=== PATIENT | male | born 1955 | race African-American/Black ===

== ENCOUNTER 2017-09-08 23:42 | Observation (INO) | payer OTHER ==
[2017-09-09 00:36] VITALS: BMI 28.5
[2017-09-09] MEDS ORDERED: SODIUM CHLORIDE 1,000 ML IV STA (00:48)
--- NOTE | 2017-09-09 01:07 | PDOC ---
Attending Attestation - Resident Resident Name: Aneudy Sauceda - ED Attending Attestation I have performed the following: I have examined & evaluated the patient, The case was reviewed & discussed with the resident, I agree w/resident's findings & plan, Exceptions are as noted - HPI HPI: 09/09/17 02:16 62-year-old male with history of diabetes, hypertension presents to the ER after a witnessed near syncopal episode associated with diaphoresis and lightheadedness lasted approximately 30 minutes prior to arrival. - Physicial Exam PE: 09/09/17 02:17 Patient is awake and alert, nontoxic-appearing, mildly tachycardic on initial evaluation. EXAMINATION CONSTITUTIONAL: Well-appearing; well-nourished; in no apparent distress HEAD: Normocephalic; atraumatic EYES: PERRL; EOM intact ENMT: External appears normal; normal oropharynx NECK: Supple; non-tender; no cervical lymphadenopathy CARD: Tachycardic; Normal S1, S2; no murmurs, rubs, or gallops RESP: Normal chest excursion with respiration; breath sounds clear and equal bilaterally; no wheezes, rhonchi, or rales ABD: Soft, non-distended; non-tender; no palpable organomegaly, no palpable hernias EXT: Normal ROM in all four extremities; non-tender to palpation; distal pulses intact SKIN: Warm, dry, no rash NEURO: No focal neurological deficiencies. - Medical Decision Making 09/09/17 02:17 62-year-old male with history of diabetes, hypertension presents after witnessed near syncopal episode. In the ER, patient is awake and alert, afebrile , nontoxic appearing, mildly tachycardic. EKG reveals sinus tachycardia at the rate of 111, with extreme left axis deviation, right bundle branch block pattern and prolonged QTC. Differential diagnoses includes an arrhythmia versus PE versus hypoglycemic episode; we'll obtain CBC/CMP/cardiac profile. Patient's low probability for PE and d-dimer will be obtained. Will obtain magnesium level. Will obtain chest x-ray to rule out cardiomegaly. Will reassess.
[2017-09-09 01:12] LABS: BASOPHIL 0.7 % (0-2.0); EOSINOPHIL 0.5 % (0-4.5); MCH 32.2 pg (25.7-33.7); MCHC 33.7 g/dl (32.0-35.9); MEAN CELL VOLUME 95.7 fl (80-96); MEAN PLT VOLUME 8.6 fl (7.5-11.1); NEUTROPHILS 84.1 % (42.8-82.8); PLATELET COUNT 159 K/MM3 (134-434); WHITE BLOOD COUNT 14.6 K/mm3 (4.0-10.0)
[2017-09-09 01:40] LABS: ALBUMIN 3.9 g/dl (3.4-5.0); ANION GAP 12 (8-16); BILIRUBIN,TOTAL 0.4 mg/dL (0.2-1.0); CALCIUM 9.6 mg/dL (8.5-10.1); CO2 23 mmol/L (21-32); CREATININE 1.1 mg/dL (0.7-1.3); GLUCOSE,RANDOM 150 mg/dL (74-106); SGOT/AST 26 U/L (15-37); SGPT/ALT 29 U/L (12-78); TOT PROT 7.4 g/dl (6.4-8.2)
[2017-09-09 01:41] LABS: ALK PHOS 60 U/L (45-117); CPK 140 IU/L (39-308); TROPONIN I < 0.02 ng/ml (0.00-0.05)
[2017-09-09 01:57] LABS: INR 1.02 (0.82-1.09); PROTHROMBIN TIME (PATIENT) 11.5 SEC (9.98-11.88)
[2017-09-09] MEDS ORDERED: MAGNESIUM SULF 50% (8.12 MEQ/2 ML-1 GM VIAL) IVPB ONE ×2 (02:05→19:22)
[2017-09-09] MEDS ORDERED: MAGNESIUM SULF 50% (8.12 MEQ/2 ML-1 GM VIAL) ONE ×2 (02:14→19:36)
--- NOTE | 2017-09-09 02:52 | PDOC ---
History of Present Illness - General Chief Complaint: Lightheaded Stated Complaint: DIZZINESS Time Seen by Provider: 09/09/17 00:03 - History of Present Illness Initial Comments: 09/09/17 02:44 62 yo M with h/o HTN, NIDDM who presents with presyncope. Pt. reports 30 minutes [employer] he was sitting at [employer] and eating when he felt "like he was going to pass out." He then endorses diaphoresis for 30 minutes that has since resolved. He denies chest pain, SOB, LOC, seizures, N/V, fevers/chills, urinary complaints, GI/abdominal complaints. Symptoms have resolved. PCP Dr. Corbett Past History - Past Medical History Allergies/Adverse Reactions: Allergies Allergy/AdvReac Type Severity Reaction Status Date / Time No Known Allergies Allergy Verified 09/08/17 23:51 Home Medications: Ambulatory Orders Metformin HCl [Glucophage -] 500 mg PO BID 09/09/17 - Suicide/Smoking/Psychosocial Hx Smoking History: Current every day smoker Number of Cigarettes Smoked Daily: 10 Information on smoking cessation initiated: No Hx Alcohol Use: No Drug/Substance Use Hx: No Review of Systems - Review of Systems Comments:: 09/09/17 02:52 GENERAL/CONSTITUTIONAL: No fever or chills. No weakness. HEAD, EYES, EARS, NOSE AND THROAT: No change in vision. No ear pain or discharge. No sore throat.- CARDIOVASCULAR: No chest pain or shortness of breath RESPIRATORY: No cough, wheezing, or hemoptysis. GASTROINTESTINAL: No nausea, vomiting, diarrhea or constipation. GENITOURINARY: No dysuria, frequency, or change in urination. MUSCULOSKELETAL: No joint or muscle swelling or pain. No neck or back pain. SKIN: No rash NEUROLOGIC: No headache, vertigo, loss of consciousness, or change in strength/ sensation. ENDOCRINE: No increased thirst. No abnormal weight change HEMATOLOGIC/LYMPHATIC: No anemia, easy bleeding, or history of blood clots. ALLERGIC/IMMUNOLOGIC: No hives or skin allergy. *Physical Exam - Vital Signs Last Vital Signs Temp Pulse Resp BP Pulse Ox 97.6 F 110 H 22 128/73 96 09/08/17 23:51 09/08/17 23:51 09/08/17 23:51 09/08/17 23:51 09/08/17 23:51 - Physical Exam Comments: 09/09/17 02:52 GENERAL: Awake, alert, and fully oriented, in no acute distress HEAD: No signs of trauma, normocephalic, atraumatic EYES: PERRLA, EOMI, sclera anicteric, conjunctiva clear ENT: Auricles normal inspection, hearing grossly normal, nares patent, oropharynx clear without exudates. Moist mucosa NECK: Normal ROM, supple, no lymphadenopathy, JVD, or masses LUNGS: No distress, speaks full sentences, clear to auscultation bilaterally HEART: Regular rate and rhythm, normal S1 and S2, no murmurs, rubs or gallops, peripheral pulses normal and equal bilaterally. ABDOMEN: Soft, nontender, normoactive bowel sounds. No guarding, no rebound. No masses EXTREMITIES : Normal inspection, Normal range of motion, no edema. No clubbing or cyanosis. NEUROLOGICAL: Cranial nerves II through XII grossly intact. Normal speech, no focal sensorimotor deficits. Absent dysmetria on FTN. Normal DANIELLE. SKIN: Warm, Dry, normal turgor, no rashes or lesions noted. Heart Score/ECG Review - History History: Moderately suspicious - Electrocardiogram EKG: Normal - Age Age: 45-65 - Risk Factors Risk Factors Heart Score: Yes Hx Hypertension, Yes Hx Diabetes, Yes Positive family hx of cardiac disease, Yes Hx Obesity Based on the list above the patient has:: >/=3 risk factors or Hx atherosclerotic disease - Troponin Troponin: </= normal limit - Score Heart Score - Total: 4 - [place]: Left [place] Deviation - P and ME Atrial Enlargement: Left - ST and T Prolonged Q-T Interval: Yes ED Treatment Course - LABORATORY CBC & Chemistry Diagram: 09/09/17 01:01 09/09/17 01:01 - ADDITIONAL ORDERS Additional order review: Laboratory Results 09/09/17 09/09/17 09/09/17 01:22 01:19 01:01 PT with INR 11.50 INR 1.02 D-Dimer 996 H Sodium Potassium Chloride Carbon Dioxide Anion Gap BUN Creatinine Creat Clearance w eGFR Random Glucose Calcium Magnesium 1.3 L Total Bilirubin AST ALT Alkaline Phosphatase Creatine Kinase 140 Troponin I < 0.02 Total Protein Albumin 09/09/17 01:01 PT with INR INR D-Dimer Sodium 133 L Potassium 4.8 Chloride 98 Carbon Dioxide 23 Anion Gap 12 BUN 14 Creatinine 1.1 Creat Clearance w eGFR > 60 Random Glucose 150 H Calcium 9.6 Magnesium Total Bilirubin 0.4 AST 26 ALT 29 Alkaline Phosphatase 60 Creatine Kinase Troponin I Total Protein 7.4 Albumin 3.9 09/09/17 01:01 RBC 4.32 MCV 95.7 MCHC 33.7 RDW 14.0 MPV 8.6 Neutrophils % 84.1 H Lymphocytes % 9.4 Monocytes % 5.3 Eosinophils % 0.5 Basophils % 0.7 - RADIOLOGY Radiology Studies Ordered: Category Date Time Status CHEST CTA [CT] Stat CT Scan 09/09/17 02:05 Ordered - Medications Given in the ED: ED Medications Discontinued Medications Generic Name Dose Route Start Last Admin Trade Name Freq PRN Reason Stop Dose Admin Sodium Chloride 1,000 mls @ 1,000 mls/hr 09/09/17 00:48 09/09/17 01:11 Normal Saline - IV 09/09/17 01:47 1,000 mls/hr ASDIR STA Administration Magnesium Sulfate 2 gm 09/09/17 02:05 09/09/17 02:19 Magnesium Sulfate IVPB 09/09/17 02:06 2 gm ONCE ONE Administration Medical Decision Making - Medical Decision Making 09/09/17 02:53 62 yo M with h/o HTN, NIDDM who presents with 30 minute episode of diaphoresis and presyncope 30 minutes [employer] while sitting down at social event. Symptoms have resolved spontaneously. No other asx. symptoms. Physical exam unremarkable. Patient mildly tachycardia 110's. DDx: Cardiac disarrythmia, PE, Hyperthyroidism ED Course: CBC, CMP, UA, EKG EKG:Severe axis deviation, RBBB, QTc Prolongation ~497 CXR: 09/09/17 02:59 Magnesium 2 mg IV D-Dimer: 996 Trop: Neg 09/09/17 02:59 CTA Chest Ordered 09/09/17 03:02 Heart Score 4-6 13 % Risk of MACE: Cardiac consult/Obs 09/09/17 03:50 Repeat EKG: [id number] 09/09/17 06:54 CTA Chest: Neg 09/09/17 07:25 [facility]. Waiting call back. Check out to Dr. Beverly *DC/Admit/Observation/Transfer Diagnosis at time of Disposition: Pre-syncope - Discharge Dispostion Condition at time of disposition: Stable
[2017-09-09 03:45] LABS: URINE APPEARANCE SLCLOUDY; URINE BILIRUBIN NEGATIVE (NEGATIVE); URINE BLOOD NEGATIVE (NEGATIVE); URINE COLOR YELLOW; URINE GLUCOSE (UA) NEGATIVE (NEGATIVE); URINE KETONE NEGATIVE (NEGATIVE); URINE NITRITE NEGATIVE (NEGATIVE); URINE PROTEIN NEGATIVE (NEGATIVE); URINE UROBILINOGEN NEGATIVE mg/dL (0.2-1.0)
--- NOTE | 2017-09-09 07:50 | PDOC ---
*Physical Exam - Vital Signs Last Vital Signs Temp Pulse Resp BP Pulse Ox 97.6 F 85 18 124/75 98 09/08/17 23:51 09/09/17 07:30 09/09/17 07:30 09/09/17 07:30 09/09/17 07:30 - Physical Exam Comments: 09/09/17 07:45 General Appearance: Nourished. No Apparent Distress HEENT: EOMI, LAURYN. Respiratory/Chest: Lungs Clear, Normal Breath Sounds. No Crackles, Rales, Rhonchi, Wheezing Cardiovascular: Regular Rhythm, Regular Rate. No Murmur, Gallops, Rubs Gastrointestinal/Abdominal: Normal Bowel Sounds, Soft. No Guarding, Rebound, Tenderness Musculoskeletal: No CVA Tenderness Extremity: Normal Capillary Refill Integumentary: Normal Color, Dry, Warm Neurologic: Fully Oriented, Alert, Normal Mood/Affect, Normal Response, ED Treatment Course - LABORATORY CBC & Chemistry Diagram: 09/09/17 01:01 09/09/17 01:01 - ADDITIONAL ORDERS Additional order review: Laboratory Results 09/09/17 09/09/17 09/09/17 03:35 02:20 01:22 PT with INR INR D-Dimer Sodium Potassium Chloride Carbon Dioxide Anion Gap BUN Creatinine Creat Clearance w eGFR Random Glucose Calcium Magnesium 1.3 L Total Bilirubin AST ALT Alkaline Phosphatase Creatine Kinase Troponin I Total Protein Albumin TSH 0.57 Urine Color Yellow Urine Appearance Slcloudy Urine pH 5.0 Urine Protein Negative Urine Glucose (UA) Negative Urine Ketones Negative Urine Blood Negative Urine Nitrite Negative Urine Bilirubin Negative Urine Urobilinogen Negative 09/09/17 09/09/17 09/09/17 01:19 01:01 01:01 PT with INR 11.50 INR 1.02 D-Dimer 996 H Sodium 133 L Potassium 4.8 Chloride 98 Carbon Dioxide 23 Anion Gap 12 BUN 14 Creatinine 1.1 Creat Clearance w eGFR > 60 Random Glucose 150 H Calcium 9.6 Magnesium Total Bilirubin 0.4 AST 26 ALT 29 Alkaline Phosphatase 60 Creatine Kinase 140 Troponin I < 0.02 Total Protein 7.4 Albumin 3.9 TSH Urine Color Urine Appearance Urine pH Urine Protein Urine Glucose (UA) Urine Ketones Urine Blood Urine Nitrite Urine Bilirubin Urine Urobilinogen 09/09/17 01:01 RBC 4.32 MCV 95.7 MCHC 33.7 RDW 14.0 MPV 8.6 Neutrophils % 84.1 H Lymphocytes % 9.4 Monocytes % 5.3 Eosinophils % 0.5 Basophils % 0.7 - Medications Given in the ED: ED Medications Discontinued Medications Generic Name Dose Route Start Last Admin Trade Name Freq PRN Reason Stop Dose Admin Sodium Chloride 1,000 mls @ 1,000 mls/hr 09/09/17 00:48 09/09/17 01:11 Normal Saline - IV 09/09/17 01:47 1,000 mls/hr ASDIR STA Administration Magnesium Sulfate 2 gm 09/09/17 02:05 09/09/17 02:19 Magnesium Sulfate IVPB 09/09/17 02:06 2 gm ONCE ONE Administration Progress Note - Progress Note Progress Note: Received sign out from Dr. Sauceda. The patient is a 62 year old male who presents for evaluation of a pre-syncopal episode found to have EKG changes with a negative troponin. Pending tele obs admission. Medical Decision Making - Medical Decision Making 09/09/17 10:52 Discussed the case with the hospitalist team who accepted for observation admission. *DC/Admit/Observation/Transfer Diagnosis at time of Disposition: Pre-syncope - Discharge Dispostion Condition at time of disposition: Stable Admit: Yes
--- NOTE | 2017-09-09 08:46 | EKG ---
Test Reason : Blood Pressure : / mmHG Vent. Rate : 111 BPM Atrial Rate : 111 BPM P-R Int : 142 ms QRS Dur : 134 ms QT Int : 366 ms P-R-T Axes : 050 -18 031 degrees QTc Int : 497 ms SINUS TACHYCARDIA WITH PREMATURE ATRIAL COMPLEXES POSSIBLE LEFT ATRIAL ENLARGEMENT RIGHT BUNDLE BRANCH BLOCK ABNORMAL ECG NO PREVIOUS ECGS AVAILABLE Confirmed by DANIS BRIONES, ROXANNE ([id number]) on 09/09/2017 8:46:41 AM Referred By: Confirmed By:ROXANNE MOSCOSO MD
--- NOTE | 2017-09-09 09:08 | EKG ---
Test Reason : Blood Pressure : / mmHG Vent. Rate : 102 BPM Atrial Rate : 102 BPM P-R Int : 142 ms QRS Dur : 134 ms QT Int : 378 ms P-R-T Axes : 055 -18 037 degrees QTc Int : 492 ms SINUS TACHYCARDIA RIGHT BUNDLE BRANCH BLOCK ABNORMAL ECG WHEN COMPARED WITH ECG OF 08-SEP-2017 23:53, PREMATURE ATRIAL COMPLEXES ARE NO LONGER PRESENT Confirmed by ROXANNE MOSCOSO MD ([id number]) on 09/09/2017 9:08:08 AM Referred By: Confirmed By:ROXANNE MOSCOSO MD
--- NOTE | 2017-09-09 10:10 | HP ---
CHIEF COMPLAINT: "I got very sweaty." PCP: Dr. oCrbett HISTORY OF PRESENT ILLNESS: 62 year-old male with a PMH significant for HTN and NIDDM. Attended a dance last night. Suddenly became lightheaded and started sweating. Patient describes "soaking sweats." EMS was called and by the time they arrived, in about 15 minutes, the sweating and lightheadedness subsided. Patient was sitting when the episode started, not exerting himself. He had alcohol earlier in the day (a glass of Vodka) but not at the dance. He ate dinner. Patient denied chest pain, palpitations, SOB, lower extremity edema. He denied nausea, vomiting, diarrhea. Denied headache, fever, chills. ER course was notable for: (1) Troponin neg x 1 (2) D-dimer elevated: CTA negative for PE (3) ECG: sinus tach @111bpm; RBBB; prolonged QTc 492 Recent Travel: No PAST MEDICAL HISTORY: Hypertension NIDDM PAST SURGICAL HISTORY: None reported Social History: Smoking: current everyday smoker Alcohol: yes Drugs: no Family History: Allergies No Known Allergies Allergy (Verified 09/08/17 23:51) HOME MEDICATIONS: Home Medications Medication Instructions Recorded Metformin HCl [Glucophage -] 500 mg PO BID 09/09/17 REVIEW OF SYSTEMS CONSTITUTIONAL: Absent: fever, chills, diaphoresis, generalized weakness, malaise, loss of appetite, weight change HEENT: Absent: rhinorrhea, nasal congestion, throat pain, throat swelling, difficulty swallowing, mouth swelling, ear pain, eye pain, visual changes CARDIOVASCULAR: Present: diaphoresis, lightheadedness Absent: chest pain, syncope, palpitations, irregular heart rate, peripheral edema RESPIRATORY: Absent: cough, shortness of breath, dyspnea with exertion, orthopnea, wheezing, stridor, hemoptysis GASTROINTESTINAL: Absent: abdominal pain, abdominal distension, nausea, vomiting, diarrhea, constipation, melena, hematochezia GENITOURINARY: Absent: dysuria, frequency, urgency, hesitancy, hematuria, flank pain, genital pain MUSCULOSKELETAL: Absent: myalgia, arthralgia, joint swelling, back pain, neck pain SKIN: Absent: rash, itching, pallor HEMATOLOGIC/IMMUNOLOGIC: Absent: easy bleeding, easy bruising, lymphadenopathy, frequent infections ENDOCRINE: Absent: unexplained weight gain, unexplained weight loss, heat intolerance, cold intolerance NEUROLOGIC: Absent: headache, focal weakness or paresthesias, dizziness, unsteady gait, seizure, mental status changes, bladder or bowel incontinence PSYCHIATRIC: Absent: anxiety, depression, suicidal or homicidal ideation, hallucinations. PHYSICAL EXAMINATION Vital Signs - 24 hr 09/08/17 09/09/17 09/09/17 23:51 03:35 07:30 Temperature 97.6 F Pulse Rate 110 H Pulse Rate [ 101 H 85 Apical] Respiratory 22 16 18 Rate Blood Pressure 128/73 Blood Pressure 104/69 124/75 [Right Arm] O2 Sat by Pulse 96 100 98 Oximetry (%) GENERAL: Awake, alert, and fully oriented, in no acute distress. HEAD: Normal with no signs of trauma. EYES: Pupils equal, round and reactive to light, extraocular movements intact, sclera anicteric, conjunctiva clear. No ptosis. EARS, NOSE, THROAT: Ears normal, nares patent, oropharynx clear without exudates. Moist mucous membranes. NECK: Normal range of motion, supple without lymphadenopathy, JVD, or masses. LUNGS: Breath sounds equal, clear to auscultation bilaterally. No wheezes, and no crackles. No accessory muscle use. HEART: Regular rate and rhythm, normal S1 and S2 without murmur, rub or gallop. ABDOMEN: Soft, nontender, not distended, normoactive bowel sounds, no guarding, no rebound, no masses. No hepatomegaly or splenomegaly. MUSCULOSKELETAL: Normal range of motion at all joints. No bony deformities or tenderness. No CVA tenderness. UPPER EXTREMITIES: 2+ pulses, warm, well-perfused. No cyanosis. No clubbing. No peripheral edema. LOWER EXTREMITIES: 2+ pulses, warm, well-perfused. No calf tenderness. No peripheral edema. NEUROLOGICAL: Cranial nerves II-XII intact. Normal speech. Normal gait. PSYCHIATRIC: Cooperative. Good eye contact. Appropriate mood and affect. SKIN: Warm, dry, normal turgor, no rashes or lesions noted, normal capillary refill. Laboratory Results - last 24 hr 09/09/17 09/09/17 09/09/17 01:01 01:01 01:01 WBC 14.6 H RBC 4.32 Hgb 13.9 Hct 41.3 MCV 95.7 MCH 32.2 MCHC 33.7 RDW 14.0 Plt Count 159 MPV 8.6 Neutrophils % 84.1 H Lymphocytes % 9.4 Monocytes % 5.3 Eosinophils % 0.5 Basophils % 0.7 PT with INR INR D-Dimer Sodium 133 L Potassium 4.8 Chloride 98 Carbon Dioxide 23 Anion Gap 12 BUN 14 Creatinine 1.1 Creat Clearance w eGFR > 60 Random Glucose 150 H Calcium 9.6 Magnesium Total Bilirubin 0.4 AST 26 ALT 29 Alkaline Phosphatase 60 Creatine Kinase 140 Troponin I < 0.02 Total Protein 7.4 Albumin 3.9 TSH Urine Color Urine Appearance Urine pH Urine Protein Urine Glucose (UA) Urine Ketones Urine Blood Urine Nitrite Urine Bilirubin Urine Urobilinogen 09/09/17 09/09/17 09/09/17 01:19 01:22 02:20 WBC RBC Hgb Hct MCV MCH MCHC RDW Plt Count MPV Neutrophils % Lymphocytes % Monocytes % Eosinophils % Basophils % PT with INR 11.50 INR 1.02 D-Dimer 996 H Sodium Potassium Chloride Carbon Dioxide Anion Gap BUN Creatinine Creat Clearance w eGFR Random Glucose Calcium Magnesium 1.3 L Total Bilirubin AST ALT Alkaline Phosphatase Creatine Kinase Troponin I Total Protein Albumin TSH 0.57 Urine Color Urine Appearance Urine pH Urine Protein Urine Glucose (UA) Urine Ketones Urine Blood Urine Nitrite Urine Bilirubin Urine Urobilinogen 09/09/17 03:35 WBC RBC Hgb Hct MCV MCH MCHC RDW Plt Count MPV Neutrophils % Lymphocytes % Monocytes % Eosinophils % Basophils % PT with INR INR D-Dimer Sodium Potassium Chloride Carbon Dioxide Anion Gap BUN Creatinine Creat Clearance w eGFR Random Glucose Calcium Magnesium Total Bilirubin AST ALT Alkaline Phosphatase Creatine Kinase Troponin I Total Protein Albumin TSH Urine Color Yellow Urine Appearance Slcloudy Urine pH 5.0 Urine Protein Negative Urine Glucose (UA) Negative Urine Ketones Negative Urine Blood Negative Urine Nitrite Negative Urine Bilirubin Negative Urine Urobilinogen Negative ASSESSMENT/PLAN: 62 year-old male with a PMH significant for HTN and NIDDM. Admitted for near syncope. Near syncope --r/o ACS: troponins neg x 2, third pending; echo and stress tomorrow; started ASA, Lipitor, metoprolol; cardiology following --r/o PE: CTA negative --r/o infectious: WBC elevated 14.6k, possibly reactive; afebrile; UA negative, CXR negative; no abx for now --r/o neurocardiogenic: check orthostatics --r/o dysrhythmias: telemetry monitoring Hypertension --BP well-controlled --continue metoprolol NIDDM --Novolog sliding scale coverage Hypomagnesemia --repleted x 2 F/E/N Fluids: PO intake adequate Electrolytes: replete as indicated Nutrition: diabetic, low sodium; NPO after midnight DVT prophylaxis: lovenox, oob, ambulation Dispo: continues to require observation. Full code. Visit type - Emergency Visit Emergency Visit: Yes ED Registration Date: 09/09/17 Care time: The patient presented to the Emergency Department on the above date and was hospitalized for further evaluation of their emergent condition. - New Patient This patient is new to me today: Yes Date on this admission: 09/09/17 - Critical Care Critical Care patient: No
[2017-09-09] MEDS ORDERED: METOPROLOL TARTRATE 25 MG TABLET (FP) ONE (12:33)
[2017-09-09] MEDS ORDERED: ASPIRIN COATED 81 MG TABLET.EC ONE (12:33)
[2017-09-09] MEDS: ASPIRIN COATED 81 MG TABLET.EC PO SCH (12:40)
[2017-09-09] MEDS: METOPROLOL TARTRATE 25 MG TABLET (FP) PO SCH ×2 (12:40→22:27)
[2017-09-09 15:20] LABS: URINE LEUK ESTERASE Negative (NEGATIVE)
[2017-09-09 15:37] LABS: TROPONIN I < 0.02 ng/ml (0.00-0.05)
[2017-09-09 15:41] LABS: MAGNESIUM 1.7 mg/dL (1.8-2.4)
[2017-09-09] MEDS: INSULIN SLIDING SCALE (NOVOLOG) 1 VIAL SQ SCH ×2 (16:44→22:33)
--- NOTE | 2017-09-09 18:32 | CON.CARD ---
Consult Consult Specialty:: Cardiology Referred by:: Ms. Hesham NP Reason for Consultation:: Near syncope - History of Present Illness Chief Complaint: Near syncope and chest pain. History of Present Illness: 62 year-old man with a PMHx of HTN, NIDDM who presents to ED 09/09/2017 with presyncope. Mr. Madrid reports 30 minutes of lightheadedness and near syncope while he was sitting at [employer]. He felt "like he was going to pass out." He then had diaphoresis for 30 minutes. Mr. Madrid reports intermittent chest pain, predominantly at rest. His exercise tolerance is limited because of exertional SOB and low back pain. He denies palpitation, SOB at rest, true syncope, edema, orthopnea or PND. He was found to have sinus tachycardia with RBBB on ECG. Carotid duplex 2016 revealed no hemodynamic stenosis. - History Source History Provided By: Patient Limitations to Obtaining History: No Limitations - Past Medical History Musculoskeletal: Yes: Chronic low back pain - Alcohol/Substance Use Hx Alcohol Use: No - Smoking History Smoking history: Current every day smoker Aproximately how many cigarettes per day: 15 Home Medications - Allergies Allergies/Adverse Reactions: Allergies Allergy/AdvReac Type Severity Reaction Status Date / Time No Known Allergies Allergy Verified 09/08/17 23:51 - Home Medications Home Medications: Ambulatory Orders Metformin HCl [Glucophage -] 500 mg PO BID 09/09/17 Review of Systems - Review of Systems Cardiovascular: reports: Chest Pain Respiratory: reports: Exercise Intolerance, SOB on Exertion Gastrointestinal: reports: No Symptoms Genitourinary: reports: No Symptoms Musculoskeletal: reports: Back Pain Integumentary: reports: No Symptoms Neurological: reports: No Symptoms Endocrine: reports: No Symptoms Hematology/Lymphatic: reports: No Symptoms Psychiatric: reports: No Symptoms - Risk Factors Known Risk Factors: Yes: Age, Diabetes Mellitus Vital Signs: Vital Signs Temperature 98.4 F 09/09/17 15:29 Pulse Rate 90 09/09/17 16:44 Respiratory Rate 18 09/09/17 16:44 Blood Pressure 123/77 09/09/17 16:44 O2 Sat by Pulse Oximetry (%) 100 09/09/17 16:44 Constitutional: Yes: Well Nourished, No Distress, Calm Eyes: Yes: Conjunctiva Clear, EOM Intact HENT: Yes: Atraumatic, Normocephalic Neck: Yes: Supple, Trachea Midline Respiratory: Yes: Regular, CTA Bilaterally Gastrointestinal: Yes: Normal Bowel Sounds, Soft Renal/: Yes: WNL Cardiovascular: Yes: Regular Rate and Rhythm, Tachycardia JVD: No Carotid Bruit: No Musculoskeletal: Yes: Back Pain Edema: No Peripheral Pulses WNL: Yes Integumentary: Yes: WNL Neurological: Yes: WNL ...Motor Strength: WNL Psychiatric: Yes: WNL - Other Data Labs, Other Data: INR, PTT INR 1.02 (0.82-1.09) 09/09/17 01:19 Troponin, BNP 09/09/17 14:55 Troponin I < 0.02 Troponin, BNP 09/09/17 14:55 Troponin I < 0.02 Imaging - Results EKG: Report Reviewed (Sinus tachycardia, LAD/LAFB. RBBB.) Assessment/Plan 62 year-old man with a PMHx of HTN, NIDDM who presents to ED 09/09/2017 with presyncope. He also complains of intermittent chest pain and TREVINO with limited exercise tolerance. He was found to have sinus tachycardia with RBBB on ECG. Carotid duplex 2016 revealed no hemodynamic stenosis. 1) Near syncope, likely vasovagal. Admit tele Echocardiogram for cardiac function. Check orthostasis. 2) Chest pain: Pt has intermittent chest pain with TREVINO and limited exercise tolerance. He has risk factors of CAD. Persantine nuclear stress test to rule out myocardial ischemia. Continue aspirin, atorvastatin and metoprolol. We will follow.
[2017-09-09] MEDS ORDERED: ATORVASTATIN CA 40 MG TABLET (FP) PO SCH (22:00)
[2017-09-09] MEDS ORDERED: DOCUSATE SODIUM 100 MG CAPSULE (FP) PO PRN (22:37)
[2017-09-10] MEDS: INSULIN SLIDING SCALE (NOVOLOG) 1 VIAL SQ SCH ×2 (06:10→11:59)
[2017-09-10 07:06] LABS: BASOPHIL 0.4 % (0-2.0); EOSINOPHIL 2.2 % (0-4.5); MCH 33.2 pg (25.7-33.7); MCHC 34.4 g/dl (32.0-35.9); MEAN CELL VOLUME 96.5 fl (80-96); MEAN PLT VOLUME 9.1 fl (7.5-11.1); NEUTROPHILS 52.7 % (42.8-82.8); PLATELET COUNT 173 K/MM3 (134-434); RDW 14.2 % (11.9-15.9); WHITE BLOOD COUNT 8.6 K/mm3 (4.0-10.0)
[2017-09-10 07:23] LABS: ALBUMIN 3.3 g/dl (3.4-5.0); ANION GAP 6 (8-16); BILIRUBIN,TOTAL 0.6 mg/dL (0.2-1.0); CALCIUM 8.4 mg/dL (8.5-10.1); CO2 26 mmol/L (21-32); CREATININE 0.9 mg/dL (0.7-1.3); GLUCOSE,RANDOM 132 mg/dL (74-106); MAGNESIUM 1.8 mg/dL (1.8-2.4); PHOSPHOROUS 3.9 mg/dL (2.5-4.9); SGOT/AST 12 U/L (15-37); SGPT/ALT 22 U/L (12-78); TOT PROT 6.5 g/dl (6.4-8.2)
[2017-09-10 07:24] LABS: ALK PHOS 59 U/L (45-117)
[2017-09-10] MEDS ORDERED: ENOXAPARIN NA (PORCINE) 40 MG/0.4 ML DISP.SYRIN SQ SCH (10:00)
[2017-09-10] MEDS ORDERED: NICOTINE 21 MG/24 HOURS TOPICAL PATCH TD SCH (10:00)
[2017-09-10] MEDS ORDERED: DIPYRIDAMOLE STRESS TEST 50 MG in DEXTROSE 5%-WATER - 40 ML IVPB ONE (11:00)
[2017-09-10 14:24] VITALS: BP 118/72; PULSE 81; TEMP 98
[2017-09-10] MEDS: METOPROLOL TARTRATE 25 MG TABLET (FP) PO SCH (15:03)
[2017-09-10] MEDS: ASPIRIN COATED 81 MG TABLET.EC PO SCH (15:03)
--- NOTE | 2017-09-10 17:17 | DS ---
Physical Exam: SUBJECTIVE: Patient seen and examined OBJECTIVE: Vital Signs Period Temp Pulse Resp BP Sys/Krishnamurthy Pulse Ox Last 24 Hr 98 F-98.2 F 80-102 18-20 118-154/70-78 94-96 PHYSICAL EXAM GENERAL: The patient is awake, alert, and fully oriented, in no acute distress. HEAD: Normal with no signs of trauma. EYES: PERRL, extraocular movements intact, sclera anicteric, conjunctiva clear. ENT: Ears normal, nares patent, oropharynx clear without exudates, moist mucous membranes. NECK: Trachea midline, full range of motion, supple. LUNGS: Breath sounds equal, clear to auscultation bilaterally, no wheezes, no crackles, no accessory muscle use. HEART: Regular rate and rhythm, S1, S2 without murmur, rub or gallop. ABDOMEN: Soft, nontender, nondistended, normoactive bowel sounds, no guarding, no rebound, no hepatosplenomegaly, no masses. EXTREMITIES: 2+ pulses, warm, well-perfused, no edema. NEUROLOGICAL: Cranial nerves II through XII grossly intact. Normal speech, gait not observed. PSYCH: Normal mood, normal affect. SKIN: Warm, dry, normal turgor, no rashes or lesions noted. LABS Laboratory Results - last 24 hr 09/09/17 09/09/17 09/09/17 16:39 19:50 22:32 WBC RBC Hgb Hct MCV MCH MCHC RDW Plt Count MPV Neutrophils % Lymphocytes % Monocytes % Eosinophils % Basophils % Sodium Potassium Chloride Carbon Dioxide Anion Gap BUN Creatinine Creat Clearance w eGFR POC Glucometer [phone] Random Glucose Calcium Phosphorus Magnesium Total Bilirubin AST ALT Alkaline Phosphatase Troponin I < 0.02 Total Protein Albumin 09/10/17 09/10/17 09/10/17 05:38 05:38 05:54 WBC 8.6 D RBC 3.98 L Hgb 13.2 Hct 38.4 MCV 96.5 H MCH 33.2 MCHC 34.4 RDW 14.2 Plt Count 173 MPV 9.1 Neutrophils % 52.7 D Lymphocytes % 32.9 D Monocytes % 11.8 H D Eosinophils % 2.2 D Basophils % 0.4 Sodium 136 Potassium 4.6 Chloride 104 Carbon Dioxide 26 Anion Gap 6 L BUN 14 Creatinine 0.9 Creat Clearance w eGFR > 60 POC Glucometer 133 Random Glucose 132 H Calcium 8.4 L Phosphorus 3.9 Magnesium 1.8 Total Bilirubin 0.6 D AST 12 L D ALT 22 D Alkaline Phosphatase 59 Troponin I Total Protein 6.5 Albumin 3.3 L HOSPITAL COURSE: Date of Admission:09/09/17 Date of Discharge: 09/10/17 Discharge Summary Reason For Visit: PRE SYNCOPE Current Active Problems Pre-syncope (Acute) Condition: Improved - Instructions Diet, Activity, Other Instructions: Two prescriptions have been called to your pharmacy: 1. Metoprolol 12.5mg twice daily to control blood pressure 2. Nicoderm patch to help with smoking cessation It is also recommended you take a baby aspirin (81mg) every day. You should follow up with your primary care provider within one week of your discharge and discuss your hospitalization. Referrals: Matias Munroe MD [Staff Physician] - Disposition: HOME - Home Medications Comprehensive Discharge Medication List: Ambulatory Orders Metformin HCl [Glucophage -] 500 mg PO BID 09/09/17 Aspirin Coated [Ecotrin -] 81 mg PO DAILY #30 cap 09/10/17 Metoprolol Tartrate [Lopressor -] 12.5 mg PO BID #60 tablet 09/10/17 Nicotine Patch [Nicoderm Patch -] 21 mg TD DAILY #30 patch 09/10/17
== END 2017-09-10 17:46 | disposition home or self-care (01) ==
LOC: JER 23:42 → JERBED 09-09 10:51 → J4S 09-09 21:18
PROVIDERS: ADMIT Internal Medicine; ATTEND Nurse Practitioner Acute Care
PROC: 3E033GC Introduction of Other Therapeutic Substance into Peripheral Vein, Percutaneous Approach (ICD-10-PCS; principal; 2017-09-09)
PROC: 3E013GC Introduction of Other Therapeutic Substance into Subcutaneous Tissue, Percutaneous Approach (ICD-10-PCS; 2017-09-09)
PROC: 3E0337Z Introduction of Electrolytic and Water Balance Substance into Peripheral Vein, Percutaneous Approach (ICD-10-PCS; 2017-09-09)
DX: R55 Syncope and collapse (principal); I10 Essential (primary) hypertension; E11.9 Type 2 diabetes mellitus without complications; E83.42 Hypomagnesemia; F17.210 Nicotine dependence, cigarettes, uncomplicated; Z79.4 Long term (current) use of insulin; Z79.84 Long term (current) use of oral hypoglycemic drugs
CPT/HCPCS: 36415; 71010-TC; 71275-TC; 78452-TC; 80048; 80053; 81003; 82550; 83735; 84100; 84443; 84484; 85025; 85379; 85610; 93005; 93010; 93017; 93306-TC; 93880-TC; 99285-25; A9502; G0378